=== PATIENT | female | born 1955 | race Caucasian/White ===

== ENCOUNTER 2017-12-17 11:11 | Emergency (ER) | payer OTHER ==
[2017-12-17] MEDS ORDERED: KETOROLAC TROMETHAMINE INJ 60 MG/2 ML VIAL IM ONE (11:35)
--- NOTE | 2017-12-17 11:37 | ED.PDOC ---
History of Present Illness - General Chief Complaint: Trauma Stated Complaint: fell into railing, heard ribs crack Time Seen by Provider: 12/17/17 11:34 Source: patient, RN notes reviewed Additional Information: 62 YEAR OLD FELL ONTO THE LEFT SIDE STRUCK THE LEFT LATERAL CHEST WALL ON THE RAIL AND NOW HAS PAIN ON THE LEFT LATERAL CHEST WALL PAIN IS WORSE WITH BREATHING ALSO LEFT LEG BUT AMBULATING WITHOUT ANY DISCOMFORT NO HEAD BACK ABDOMINAL INJURY REPORTS NO ABDOMINAL PAIN SHOULDER PAIN ON EXAM SHE HAD TENDERNESS ON THE LEFT FLANK AND MINIMAL TENDERNESS ON THE LEFT UPPER QUADRANT CHEST XRAY NO PNEUMOTHORAX AND NO FRACTURE RIBS IDENTIFIED BECAUSE OF THE LEFT LOWER CHEST WALL AND LEFT UPPER QUADRANT TENDERNESS A CT SCAN WAS DONE TO RULE OUT SPLENIC RENAL INJURY CT SHOWED NORMAL SOLID ORGANS HOWEVER THERE WAS EVIDANCE OF POSSIBLE CONTUSION OF THE SPLENIC FLEXTURE OF THE COLON AND TRACE OF FREE FLUID IN THE PELVIS I CALLED [facility] DISCUSSED WITH DR CABALLERO WHO SUGGESTED THE PATIENT CAN BE TRANSFERED THERE FOR FURTHER EVALUATION BUT PATIENT DID NOT WANT TO GO SHE STATED IF SHE HAS ANY SIGNIFICANT PAIN SHE WILL RETURN OR GO TO [facility] SHE [facility] I DID EXPLAIN TO HER THE REASON WHY I WANTED HER TO HAVE TRAUMA SURGEON EVALUATE HER SHE UNDERSTANDS BUT SHE STATES " I FEEL GOOD " IF I HURT I WILL GO I ACCEPTED HER DECISION HER LAB DATA VS ARE STABLE NOW SEVERAL HOURS SINCE HER INJURY AND REPEAT EXAM OF HER ABDOMEN SOFT ABDOMEN WITH NO SIGNS OF PERITONEAL IRRITAION - History of Present Illness Occurred: just prior to arrival Severity: moderate Pain Location: chest Method of Injury: fall Improving Factors: nothing Worsening Factors: movement Loss of Consciousness: no loss of consciousness Associated Symptoms (Fall): denies symptoms Allergies/Adverse Reactions: Allergies Cephalexin [From Keflex] Allergy (Verified 12/17/17 11:35) Home Medications: Ambulatory Orders Acetamin W/Cod #3 Tab [Tylenol w/CODEINE #3] 1 ea PO Q6HR PRN #40 tab 12/17/17 Flexeril 12/17/17 Lisinopril 12/17/17 Wellbutrin XL 12/17/17 Xanax 12/17/17 Review of Systems - Review of Systems Constitutional: States: no symptoms reported EENTM: States: no symptoms reported Respiratory: States: see HPI Cardiology: States: no symptoms reported Gastrointestinal/Abdominal: States: no symptoms reported Genitourinary: States: no symptoms reported Musculoskeletal: States: no symptoms reported Skin: States: no symptoms reported Neurological: States: no symptoms reported Endocrine: States: no symptoms reported Hematologic/Lymphatic: States: no symptoms reported Past Medical History (General) - Patient Medical History Hx Stroke: No Hx Dementia: No Hx Asthma: No Hx Hypertension: Yes Hx Thyroid Disease: No Hx Diabetes: No Hx Cancer: No Surgical History: other - Vaccination History Hx Tetanus, Diphtheria Vaccination: No Hx Influenza Vaccination: Yes Hx Pneumococcal Vaccination: Yes Immunizations Up to Date: Yes - Social History Hx Tobacco Use: No Hx Alcohol Use: Yes Hx Substance Use: No Hx Depression: Yes - Female History Patient is a Female of Child Bearing Age (10 -59 yrs old): No Family Medical History - Family History Father Hx Cardiac Disease: Yes Physical Exam - Physical Exam General Appearance: Alert, Obvious distress Eye Exam: bilateral normal ENT Exam: hearing grossly normal, no evidence of ENT injury, no dental injury Neck Exam: non-tender, full range of motion, normal alignment, normal inspection Cardiovascular/Respiratory: regular rate, rhythm, normal peripheral pulses, no JVD, normal breath sounds, other - TENDER OVER THE LEFT LATERAL CHEST WALL Gastrointestinal/Abdominal: normal bowel sounds, non tender, soft, no organomegaly Back Exam: normal inspection, no CVA tenderness, no vertebral tenderness Extremity Exam: no evidence of injury, normal range of motion, no pedal edema Neurologic: no motor/sensory deficits, alert, normal mood/affect - Elyssa Coma Score Best Eye Response ([place]): (4) open spontaneously Best Verbal Response ([place]): (5) oriented Best Motor Response ([place]): (6) obeys commands Progress - Results/Orders Results/Orders: Laboratory Tests 12/17/17 12/17/17 12:00 12:00 WBC 4.5 L RBC 3.69 L Hgb 12.5 Hct 36.7 MCV 99.4 H MCH 33.8 H MCHC 34.1 RDW 13.3 Plt Count 167 MPV 8.0 Absolute Neuts (auto) 3.40 Absolute Lymphs (auto) 0.60 L Absolute Monos (auto) 0.40 Absolute Eos (auto) 0.00 Absolute Basos (auto) 0.00 Neutrophils % 76.2 Lymphocytes % 14.3 L Monocytes % 8.6 Eosinophils % 0.2 L Basophils % 0.7 Sodium 126 L Potassium 4.1 Chloride 93 L Carbon Dioxide 21 Anion Gap 16.1 BUN 10 Creatinine 0.94 BUN/Creatinine Ratio 10.6 Random Glucose 97 Serum Osmolality 252.3 L* Calcium 9.0 Departure - Departure Clinical Impression: Fracture, ribs Time of Disposition: 14:51 Disposition: Discharge to Home or Self Care Condition: Good Departure Forms: ED Discharge - Pt. Copy, Patient Portal Self Enrollment Instructions: DI for Trauma Prescriptions: Acetamin W/Cod #3 Tab [Tylenol w/CODEINE #3] 1 ea PO Q6HR PRN #40 tab PRN Reason: Mild To Moderate Pain Home Medications: Ambulatory Orders Acetamin W/Cod #3 Tab [Tylenol w/CODEINE #3] 1 ea PO Q6HR PRN #40 tab 12/17/17 Flexeril 12/17/17 Lisinopril 12/17/17 Wellbutrin XL 12/17/17 Xanax 12/17/17
--- NOTE | 2017-12-17 12:08 | RAD ---
EXAM DESCRIPTION: XR RIBS 2 VIEWS UNILATERAL CLINICAL HISTORY: Fall COMPARISON: None available Findings/impression: Left rib series was acquired. There is mild irregularity along the medial aspect of the lateral fourth left rib. This may be from a remote fracture versus acute nondisplaced fracture is correlate clinically for focal point tenderness in this region. Otherwise, no radiographic evidence for acute displaced fracture of the remaining imaged left ribs. Visualized jose thorax is normal in appearance. Electronically signed by: Ha Hendrickson MD 12/17/2017 12:07 PM CDT
--- NOTE | 2017-12-17 14:00 | CT ---
EXAM DESCRIPTION: Abdomen/Pelvis w/Contrast CLINICAL HISTORY: 62 years Female, trauma COMPARISON: None available. TECHNIQUE: Contiguous 3 mm axial images were obtained from the lung bases to the level of the proximal femora after the administration of intravenous and oral contrast. Sagittal and coronal reconstructions were reviewed. FINDINGS: THORAX: The imaged lower thorax demonstrates no gross abnormality. LIVER: The liver demonstrates normal size and density with no intrahepatic biliary ductal dilatation or focal masses. GALLBLADDER: Grossly unremarkable. PANCREAS: Appears normal with no cystic or solid lesions. SPLEEN: Normal ADRENAL GLANDS: Normal with no nodules or masses. KIDNEYS: Both kidneys enhance symmetrically with no hydronephrosis or nephrolithiasis or perinephric fluid collections. No focal masses are identified. The visualized ureters appear grossly unremarkable. STOMACH: The stomach is not well-distended limiting detailed evaluation. SMALL BOWEL: The small bowel loops demonstrate variable degrees of distention with no abnormal dilatation or other signs to suggest bowel obstruction. LARGE BOWEL: Small amount of fluid and stranding is identified in the left paracolic gutter adjacent to the splenic flexure. However no evidence of free intraperitoneal air to suggest perforation. The appendix is well-visualized and appears normal RETROPERITONEUM: The abdominal aorta is nonaneurysmal with mild atherosclerosis. The inferior vena cava is normal in size and caliber. No abnormally enlarged retroperitoneal lymph nodes are identified. URINARY BLADDER:The urinary bladder is well-distended with no gross abnormality. The uterus and adnexa appear normal. Small amount of free fluid is noted in the pelvis. ADDITIONAL FINDINGS: None. BONES: Mild degenerative changes are identified in the visualized bones. Grade 1 anterolisthesis of L3 over L4 is noted. Severe right and [id number] left hip osteoarthritis is noted. Fractures of the posterior aspect of the left 10th and 11th ribs are identified. IMPRESSION: 1. Trace fluid and stranding is identified in the left paracolic gutter adjacent to the splenic flexure. Findings are concerning for bowel contusion. No evidence of perforation. 2. Small amount of free fluid is noted in the pelvis. 3. Fractures of the posterior aspect of the left 10th and 11th ribs are identified. This exam was performed according to our departmental dose-optimization program, which includes automated exposure control, adjustment of the mA and/or kV according to patient size and/or use of iterative reconstruction technique. Electronically signed by: Maria Guadalupe Cook MD 12/17/2017 1:59 PM CDT
[2017-12-17 14:30] VITALS: O2SAT 98
[2017-12-17 15:01] VITALS: BP 166/100
== END 2017-12-17 15:00 | disposition home or self-care (01) ==
LOC: ER 11:11
DX: S22.42XA Multiple fractures of ribs, left side, initial encounter for closed fracture (principal); R10.12 Left upper quadrant pain; F32.9 Major depressive disorder, single episode, unspecified; I10 Essential (primary) hypertension; Z88.1 Allergy status to other antibiotic agents; W01.198A Fall on same level from slipping, tripping and stumbling with subsequent striking against other object, initial encounter; Y92.89 Other specified places as the place of occurrence of the external cause
CPT/HCPCS: 71101; 74177; 80048; 85025; J1885